=== PATIENT | female | born 1945 | race Caucasian/White ===

== ENCOUNTER → 2016-06-27 | Outpatient (CLI) | payer OTHER | LOC: CIMAGING 10:41 | PROVIDERS: ATTEND Physician Assistant | DX: K59.00 Constipation, unspecified (principal) | CPT/HCPCS: 74022-PO ==

== ENCOUNTER 2017-05-08 12:28 | Emergency (ER) | payer OTHER ==
--- NOTE | 2017-05-08 13:25 | EDPHY ---
HPI/HX/ROS/PE/MDM Narrative: CHIEF COMPLAINT: HPI: The patient is a 72 y/o female with a history of osteoporosis complaining of head, neck, and shoulder pain after a fall up the stairs. A couple hours ago , she was walking up the stairs when she tripped and fell. She hit her head on a wall. Since then she has had pain in her head, neck, shoulders bilaterally, and her right knee. She has associated nausea. She denies loss of consciousness , numbness, weakness, vomiting, or any other associated symptoms. She also has conjunctivitis for which she is using antibiotic eye drops. She has been able to walk since the fall. REVIEW OF SYSTEMS: Aside from elements discussed in the HPI, a comprehensive 10-point review of systems was reviewed and is negative. PMH: Kidney stones, osteoporosis, hypertension SOCIAL HISTORY: Lives in [place], , retired PHYSICAL EXAM: General:Patient is alert, in no acute distress. ENT:Eyes are normal to inspection. ENT inspection normal. Head: 4 cm by 7 cm hematoma on the forehead Neck: Normal inspection. Full range of motion. Respiratory:No respiratory distress. Breath sounds normal bilaterally. Cardiovascular: Regular rate and rhythm. Strong peripheral pulses. Normal cap refill. Abdomen:The abdomen is nontender to palpation. There are no peritoneal signs. There are normal bowel sounds. Back: Normal to inspection. No tenderness to palpation. Skin: Normal color. No rash. Warm and dry. Extremities: Normal appearance. Full range of motion. Neuro: Oriented x3. Normal motor function. Normal sensory function. ED Course: Study: CT of the head and neck Indication: Fall with forehead hematoma Results: CT scan of the head and neck was obtained. The results of the study are : negative for acute findings The study was read by the radiologist, Dr. Hylton. I viewed the images myself on the PACS system. The patient presents with head, neck, and shoulder pain after a fall. Plan for CT. 1:40 PM- The patient's CT was normal. I feel she is safe to return home. I informed her of the results of her workup. SHe agrees to this course of action. Return precautions given. MDM: This is an elderly female who presents after clear mechanical fall. CTH and C- spine are negative. No laceration or extremity trauma is present. Patient likely has a concussion. Strict return precautions discussed with the patient who is in agreement with plan for discharge home. General Time Seen by Provider: 05/08/17 13:02 Initial Vital Signs: Initial Vital Signs Temperature (C) 36.5 C 05/08/17 12:31 Heart Rate 91 05/08/17 12:31 Respiratory Rate 18 05/08/17 12:31 Blood Pressure 185/109 H 05/08/17 12:31 O2 Sat (%) 97 05/08/17 12:31 O2 Delivery Mode Room Air Allergies/Adverse Reactions: No Known Allergies Allergy (Verified 05/08/17 12:30) Home Medications: Medication Instructions Recorded Alendronate Sodium [Fosamax] 70 mg PO 06/10/11 Metoprolol Tartrate [Lopressor 25 25 mg PO 05/08/17 mg (*)] Ondansetron Odt [Zofran Odt] 4 mg PO Q4PRN PRN #10 tab 05/08/17 Departure - Departure Disposition: Home, Routine, Self-Care Clinical Impression: Traumatic hematoma of forehead Condition: Good Instructions: Hematoma (ED) Additional Instructions: 1. Return to the emergency department for any uncontrollable vomiting, weakness , numbness, or any other worsening of condition. Referrals: Sierra Herrera MD [Primary Care Provider] - As per Instructions Prescriptions: Ondansetron Odt [Zofran Odt] 4 mg PO Q4PRN PRN #10 tab PRN Reason: Nausea Report Scribed for: Torres Juan Report Scribed by: Sugar Jones Date of Report: 05/08/17 Time of Report: 13:27 Physician Review and Approval Statement: Portions of this note were transcribed by an ED scribe. I personally performed the history, physical exam, and medical decision making; and confirm the accuracy of the information in the transcribed note.
[2017-05-08] MEDS ORDERED: ONDANSETRON DISINTEGRATING 4 MG TAB PO ONE (13:50)
[2017-05-08 14:10] VITALS: BP 150/88; PULSE 88; RESP 16; TEMP 96.8; O2SAT 94
[2017-05-09] MEDS ORDERED: IOPAMIDOL (ISOVUE-300) 100 ML BTL ONE (10:09)
== END 2017-05-08 14:10 | disposition home or self-care (01) ==
DX: S00.83XA Contusion of other part of head, initial encounter (principal); I10 Essential (primary) hypertension; W10.9XXA Fall (on) (from) unspecified stairs and steps, initial encounter; Y99.8 Other external cause status; Y93.01 Activity, walking, marching and hiking
CPT/HCPCS: Q9967

== ENCOUNTER → 2017-06-03 | Outpatient (CLI) | payer OTHER | LOC: GIMAGING 19:17 | PROVIDERS: ATTEND Nurse Practitioner Family | DX: S09.92XA Unspecified injury of nose, initial encounter (principal); W19.XXXA Unspecified fall, initial encounter | CPT/HCPCS: 70160-PO ==

== ENCOUNTER 2017-06-21 06:34 | Observation (INO) | payer OTHER ==
[2017-06-21] MEDS ORDERED: LR 1,000 ML IV ONE (06:51)
[2017-06-21] MEDS ORDERED: LIDOCAINE 1% 2 ML INJ ID PRN (06:51)
[2017-06-21] MEDS ORDERED: LIDOCAINE 1% 2 ML INJ ONE (06:56)
--- NOTE | 2017-06-21 06:57 | PDANEPAE ---
ANE History of Present Illness 72 year old female for thyroid isthmusectomy & possible total thyroidectomy. ANE Past Medical History - Cardiovascular History Hx Hypertension: Yes Hx Arrhythmias: No Hx Chest Pain: No Hx Coronary Artery / Peripheral Vascular Disease: No Hx CHF / Valvular Disease: No Hx Palpitations: No Cardiovascular History Comment: pcp monitors - Pulmonary History Hx COPD: No Hx Asthma/Reactive Airway Disease: No Hx Recent Upper Respiratory Infection: No Hx Oxygen in Use at Home: No Hx Sleep Apnea: No Sleep Apnea Screening Result - Last Documented: Negative Pulmonary History Comment: hx of pna with pluerisy - Neurologic History Hx Cerebrovascular Accident: No Hx Seizures: No Hx Dementia: No Neurologic History Comment: hx of tension headaches - Endocrine History Hx Diabetes: No Obesity: no Endocrine History Comment: hx of thyroid nodule. recent diagnosis of cancer - Renal History Hx Renal Disorders: Yes Renal History Comment: hx of uti's. hx of kidney stones. hx of dysuria. pt denies symptoms currently - Liver History Hx Hepatic Disorders: No - Neurological & Psychiatric Hx Hx Neurological and Psychiatric Disorders: Yes Neurological / Psychiatric History Comment: anxiety with panic attacks- pt states they are less with metoprolol - Cancer History Hx Cancer: Yes Cancer History Comment: thyroid currently - Congenital Disorder History Hx Congenital Disorders: No - GI History Hx Gastrointestinal Disorders: Yes Gastrointestinal History Comment: "lots of gastro problems". rectal prolapse - Other Health History Other Health History: wears readers. arthritic pain from time to time - Chronic Pain History Chronic Pain: No - Surgical History Prior Surgeries: pleurisy surgery 10/2003. kidney stones and lithotripsies 1995 , 2005, 2009, 2010. nasal surgery 1960. tonsillectomy as child ANE Review of Systems Review of systems is: negative Review of Systems: - Exercise capacity Exercise capacity: <4 METS METS (RN): 4 METS ANE Patient History - Allergies Allergies/Adverse Reactions: No Known Allergies Allergy (Verified 06/13/17 11:01) - Home Medications Home medications: home medication list seen and reviewed Home Medications: Alendronate Sodium [Fosamax] 70 mg PO 06/10/11 [Last Taken 06/11/17] Metoprolol Tartrate [Lopressor 25 mg (*)] 25 mg PO HS 05/08/17 [Last Taken 06/20] ACETAMINOPHEN 06/13/17 [Last Taken 06/20/17] Herbals/Supplements -Info Only 06/13/17 [Last Taken 06/13/17] Probiotic 06/13/17 [Last Taken 06/20/17] - NPO status NPO Status: no food or drink >8 hours - Anes Hx Anes Hx: no prior problems - Smoking Hx Smoking Status: Never smoked Marijuana use: No - Alcohol Use Alcohol Use: Rarely - Family Anes Hx Family Anes Hx: neg - N/A Family Hx Anesthesia Complications: none ANE Labs/Vital Signs - Vital Signs Vital Signs: reviewed preoperatively; see RN documention for details Height: 161.29 cm Weight: 40.823 kg ANE Physical Exam - Airway Neck exam: FROM Mallampati Score: Class 2 Mouth exam: normal dental/mouth exam - Pulmonary Pulmonary: no respiratory distress - Cardiovascular Cardiovascular: regular rate and rhythym - ASA Status ASA Status: III ANE Anesthesia Plan Anesthesia Plan: general endotracheal anesthesia Total IV Anesthesia: No
[2017-06-21] MEDS ORDERED: LIDO/EPI 1% **for epidural** 10 ML SDV ONE (06:58)
[2017-06-21] MEDS ORDERED: BACITRACIN ZINC 14.2 GM OINTTUBE TP ONE (06:58)
[2017-06-21] MEDS ORDERED: LIDOCAINE 1% 5 ML SDV ONE ×2 (07:01→07:04)
[2017-06-21] MEDS ORDERED: MIDAZOLAM 2 MG/2 ML VIAL IVP ONE (07:23)
[2017-06-21] MEDS ORDERED: ceFAZolin 2 GM/SWFI 2 GM/20 ML SYR IVP ONE (07:29)
--- NOTE | 2017-06-21 07:29 | PDHPUP ---
History & Physical Update H&P update statement: This history and physical update is based on an assessment of the patient which was completed after admission or registration (within 24 hours), but prior to the surgery/procedure. H&P update: no change in patient's condition since H&P completed
[2017-06-21] MEDS ORDERED: REMIFENTANIL HCL 1 MG VIAL ONE (07:39)
[2017-06-21] MEDS ORDERED: PROPOFOL/EMULSION 500 MG/50 ML BOTTLE IV ONE (07:40)
[2017-06-21] MEDS ORDERED: PHENYLEPHRINE HCL 100 MCG/ML SYR ONE (07:42)
[2017-06-21] MEDS ORDERED: fentaNYL 100 MCG/2 ML INJ ONE (07:46)
[2017-06-21] MEDS ORDERED: PROPOFOL 200 MG/20 ML VIAL ONE (07:46)
[2017-06-21] MEDS ORDERED: SUCCINYLCHOLINE CHLORIDE 200 MG/10 ML SYR IVP ONE (08:21)
[2017-06-21] MEDS ORDERED: HYDROCODONE/APAP 5/325 TAB PO PRN (08:29)
[2017-06-21] MEDS ORDERED: PHENYLEPHRINE HCL 100 MCG/ML SYR IVP PRN (08:29)
[2017-06-21] MEDS ORDERED: LR 500 ML IV PRN (08:29)
[2017-06-21] MEDS ORDERED: NALOXONE HCL 0.4 MG/ML INJ IVP PRN (08:29)
[2017-06-21] MEDS ORDERED: ONDANSETRON 4 MG/2 ML VIAL IVP PRN (08:29)
[2017-06-21] MEDS ORDERED: fentaNYL 100 MCG/2 ML INJ IVP PRN (08:29)
[2017-06-21] MEDS ORDERED: LABETALOL HCL 5 MG/ML 20 ML MDV IVP PRN (08:29)
--- NOTE | 2017-06-21 08:59 | GOP ---
[f rep st] OPERATIVE REPORT DATE OF OPERATION: 06/21/2017 SURGEON: Torres Ibarra MD DENTAL EQUIPMENT INSTALLER AND SERVICER: NADJA Thurston. ANESTHESIA: General. 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 POSTOPERATIVE DIAGNOSIS: Papillary carcinoma of the thyroid gland. PROCEDURE PERFORMED: Thyroid isthmusectomy. FINDINGS: The mass was approximately 1.5 x 1.5 x 0.8 cm in size, mobile with no evidence of gross in vasion. SPECIMENS: Thyroid isthmus. ESTIMATED BLOOD LOSS: Less than 5 cc. INDICATIONS: The patient is a 72-year-old woman with a small nodule of the thyroid isthmus. Needle biopsy showed evidence of papillary cancer. Given the nature of the lesion being isolated in the ist hmus, the decision was made to perform isthmusectomy only. DESCRIPTION OF PROCEDURE: Patient taken to the OR, positively identified, placed on monitors and gen eral endotracheal anesthesia was induced. The patient was then prepped and draped in a normal steril e fashion. Incision was marked in line with the anterior neck skin crease and infiltrated with 2 cc of 1% lidocaine with 1:200,000 epinephrine. The skin was then sharply incised. Dissection was then carried down to the strap muscles. The strap muscles were elevated off the thyroid isthmus. The ist hmus was isolated from the surrounding tissues and the Harmonic scalpel used to divide the thyroid is thmus from the left and right thyroid lobes keeping a cuff of approximately 5 mm of normal-appearing thyroid tissue. This was oriented for the pathologist. The wound was irrigated with sterile saline. No signs of any bleeding were noted. The wound was then closed with Vicryl and prolene. No drain was necessary. COMPLICATIONS: None. /[id number]/MODL
[2017-06-21] MEDS ORDERED: D5W 1/2 NS W/ 20 KCl/L 1,000 ML IV SCH (09:00)
[2017-06-21 11:39] VITALS: RESP 18
[2017-06-21 15:05] VITALS: BP 115/63; PULSE 76; TEMP 98.4; O2SAT 95
--- NOTE | 2017-06-21 17:02 | POSTANESTH ---
Post Anesthetic Evaluation Cardiovascular Status: Normal, Stable, Similar to Pre-Op Cond Respiratory Status: Normal, Stable, Similar to Pre-op Cond. Level of Consciousness/Mental Status: Can Participate in Eval, Alert and Oriented Pain Control: Adequate, Prn Tx Ordered Nausea/Vomiting Control: Adequate, Prn Tx Ordered Complications Possibly Related to Anesthesia: None Noted
--- NOTE | 2017-06-21 17:08 | SOAPPROG ---
SOAP Progress Note Assessment/Plan: Assessment: pPt doing well Plan:dISCHARGE HOME. fOLLOW UP IN 6 DAYS OFR SUTURE REMOVAL 06/21/17 17:05 pT DOING WELL. Subjective: Pt has minimal pain and is brian PO. She would like to go home Objective: Vital Signs Temp Pulse Resp BP Pulse Ox 36.9 C 76 18 115/63 95 06/21/17 15:03 06/21/17 15:03 06/21/17 15:03 06/21/17 15:03 06/21/17 15:03 Neck is flat. Breathing easily and voice is normal. ICD10 Worksheet Patient Problems: Problems Problem Status Onset Thyroid cancer Acute - ICD10 Problem Qualifiers (1) Thyroid cancer
== END 2017-06-21 18:07 | disposition home or self-care (01) ==
LOC: F3E 06:34
PROVIDERS: ADMIT Otolaryngology; ATTEND Otolaryngology
PROC: 0GTJ0ZZ Resection of Thyroid Gland Isthmus, Open Approach (ICD-10-PCS; principal; 2017-06-21 07:45)
DX: C73 Malignant neoplasm of thyroid gland (principal); I10 Essential (primary) hypertension; Z87.442 Personal history of urinary calculi; Z87.440 Personal history of urinary (tract) infections
CPT/HCPCS: 60200; J0330; J0690; J2250; J2370; J2704; J3010; J0171